=== PATIENT | male | born 1970 | race Two or more races ===

== ENCOUNTER 2024-11-26 12:31 | Emergency (ER) | payer MEDICAID, SELFPAY ==
[2024-11-26 12:50] VITALS: BP 149/84; PULSE 77; RESP 18; TEMP 36.9; O2SAT 96; BMI 33.7
--- NOTE | 2024-11-26 13:06 | PD.EDWOUND ---
ED Wound/Laceration-RME/HPI General Chief Complaint: Wound/Laceration Stated Complaint: RIGHT HAND PUNCTURED BY NAIL Time Seen by Provider: 11/26/24 12:38 Arrival date/time: 11/26/24 12:31 RME / HPI RME / HPI narrative: 54-year-old male patient with no significant medical history, came in for evaluation regarding puncture wound to the right hand. Patient got a puncture wound to the left hand with a nail gun. Patient pulled it out. No active bleeding noted patient is able to bend and extend the fingers without any limitation. Patient tetanus vaccination is unknown. Related Data Previous Rx's ?Medication ?Instructions ?Recorded diclofenac sodium 75 mg 75 mg PO BID PRN pain #60 tabs 08/02/22 tablet,delayed release Allergies Allergy/AdvReac Type Severity Reaction Status Date / Time No Known Allergies Allergy Verified 11/26/24 12:33 Review of Systems Review of Systems Narrative Review of Systems: Review of system reviewed and within normal limits except mentioned in HPI Course Quality Measures none Orders Category Date Time Status Tet,Diphth,Pertuss(Acell)-Tdap [Boostrix Vacc] Med 11/26/24 13:05 Discontinued 0.5 ml IMI .ONCE ONE Vital Signs Vital signs: Vital Signs Temperature 98.4 F 11/26/24 12:50 Pulse Rate 77 11/26/24 12:50 Respiratory Rate 18 11/26/24 12:50 Blood Pressure 149/84 H 11/26/24 12:50 Pulse Oximetry (%) 96 11/26/24 12:50 Oxygen Delivery Method Room Air 11/26/24 12:50 Wound / Laceration MDM Narrative [facility] Narrative:: VITAL SIGNS: Reviewed. GENERAL APPEARANCE: Alert and interactive, follows commands, no acute distress, HEAD AND FACE: Non-traumatic. ENT: PERRL, pink conjunctivitis, eyelid no trauma, Mucous membrane moist. NECK: Supple, nontender, no nuchal rigidity. CHEST: No tenderness, no crepitus, no paradoxical movement, no retractions. LUNGS: Clear, well ventilated, symmetric, no rales, no wheezing, no ronchi, no stridor, good breath sounds bilaterally. HEART: Regular rate, regular rhythm, no murmur, no gallops. ABDOMEN: Soft, positive bowel sounds, nondistended, no guarding, nontender, no rebound, no masses, RECTAL: Deferred. GENITAL: Deferred. NEUROLOGICAL: Gross motor function intact sensory function intact, Appropriate for age. MUSCULOSKELETAL: low back nontender, full range of motion. EXTREMITIES: Puncture wound right hand palmar aspect, no swelling noted bleeding nontender, full range of motion. SKIN: Color pink, dry, no rash, no lacerations, no abrasions, no contusions. LYMPHATICS: Deferred. Patient data External records reviewed:: None Clinical information provided by:: patient and family Social determinants that could affect healthcare access:: none Patient has the following chronic illnesses:: None How is presenting disease/condition affected by chronic disease/condition?: no chronic disease Evaluation data The following diagnostics were reviewed and interpreted by me:: other (specify) Lab and/or radiology exams considered but not ordered:: None Interpretation Summary: None Medications / Prescriptions Medications or Prescriptions considered but not ordered:: None Medication administrations:: Medication Administration History Discontinued Medications Diphtheria/Tetanus/Acell Pertussis (Diphth,Pertuss(Acell),Tet Vac 0.5 Ml Syr- Adult) 0.5 ml IMi .ONCE ONE Stop: 11/26/24 13:06 Last Admin: 11/26/24 13:22 Dose: 0.5 ml Documented By: KF Tdap Consultations Consultation(s) initiated? (list below): No Diagnosis Wound Differential Diagnosis: laceration and other (Punctured wound) Most likely diagnosis given after review of the tests above:: Puncture wound hand Admission Indicated Admission indicated?: not indicated Admission Request Was there a request for admission?: No Disposition Plan Disposition Plan: Discharge Discharge Attestation Discharge Attestation: The patient and all family members were given an opportunity to ask questions and understood the discharge instructions. Discharge instructions specifically effects, indications for sooner follow up or return to the emergency department, and the expected course of current diagnosis. Patient condition: Stable Discharge Plan Plan Patient Disposition: HOME (Self Care) Disposition Comment: stable Prescriptions/Referrals Prescriptions/Med Rec: No Action diclofenac sodium 75 mg tablet,delayed release (DR/EC) 75 mg PO BID PRN (Reason: pain) Qty: 60 0RF Problem List Clinical Impression: Puncture wound of hand Patient/Caregiver Discharge Instructions Discharge Activity: activity as tolerated Education Materials: ED Puncture Wound (General) Additional Instructions: Thank you for the opportunity for serving you today. You are stable for discharged . You are advised to: Follow-up with your PCP in 1 to 2 days Return to ED for worsening of symptoms Increase oral fluids Daily dressing with Neosporin as needed Print Language: Bruneian Stand Alone Forms: Tereza Award Info., Patient Portal Info Letter PA/[employer] TECHNICIAN Supervising Physician STACY/NOLA Supervising Physician: MD Bhavin
[2024-11-26] MEDS: DIPHTH,PERTUSS(ACELL),TET VAC 0.5 ML SYR- ADULT IMi (13:22)
== END 2024-11-26 19:56 | disposition home or self-care (01) ==
LOC: SERX 14:47
PROVIDERS: Emergency Provider Family Medicine; PCP Internal Medicine
DX: S61.432A Puncture wound without foreign body of left hand, initial encounter (principal); W29.4XXA Contact with nail gun, initial encounter; Z23 Encounter for immunization
CPT/HCPCS: 90471; 90715; 99282